=== PATIENT | male | born 1935 | race Two or more races ===

== ENCOUNTER → 2016-11-12 | Outpatient (CLI) | payer MEDICARE, BC ==
[2016-11-12 18:16] LABS: ANION GAP 7 MEQ/L (8-16); BLOOD UREA NITROGEN 20 MG/DL (7-18); CALCIUM LEVEL 9.5 MG/DL (8.8-10.2); CARBON DIOXIDE LEVEL 29 MEQ/L (21-32); CHLORIDE LEVEL 103 MEQ/L (98-107); CREATININE FOR GFR 1.22 MG/DL (0.70-1.30); GLOMERULAR FILTRATION RATE > 60.0 (>35); GLUCOSE, FASTING 100 MG/DL (83-110); POTASSIUM SERUM 4.4 MEQ/L (3.5-5.1); SODIUM LEVEL 139 MEQ/L (136-145)
[2016-11-12 18:29] LABS: MEAN CORPUSCULAR HEMOGLOBIN 30.4 pg (27.0-33.0); MEAN CORPUSCULAR HGB CONC 34.9 g/dl (32.0-36.5); MEAN CORPUSCULAR VOLUME 86.9 fl (80.0-96.0); RED CELL DISTRIBUTION WIDTH 13.6 % (11.5-14.5); WHITE BLOOD COUNT 4.7 K/mm3 (4.0-10.0)
[2016-11-16 14:14] LABS: PSA TOTAL 13.4 ng/mL (0.0-4.0)
== END ==
LOC: M SMT 11:20
PROVIDERS: ATTEND Nurse Practitioner Family
DX: C61 Malignant neoplasm of prostate (principal)
CPT/HCPCS: 36415; 80048; 84154; 85027; G0463

== ENCOUNTER → 2016-11-26 | Outpatient (CLI) | payer MEDICARE, BC ==
[~2016-11-26] MED LIST: ISOVUE-370 76% 100ML VIAL (Q9967) As Ordered ONE
--- NOTE | 2016-11-26 10:41 | REP ---
Clinical: Prostate cancer. Technique: Axial contrast enhanced images from the lung bases to the pubic symphysis using 100 ml Isovue 370 intravenous contrast material with precontrast and delayed images of the abdomen as well as coronal and sagittal re-formations. Findings: Lung bases demonstrate partially calcified pleural plaques, scattered calcified and noncalcified nodules up to 4 mm, and chronic appearing fibroatelectatic changes with mild bronchiectasis. Fatty infiltration of the liver without focal hepatic lesion. Spleen, pancreas, bilateral adrenal glands and kidneys are normal. Incidental 1 cm right adrenal adenoma identified. The patient is status post cholecystectomy. The enteric system is without obstruction or acute inflammatory process. Normal terminal ileum and appendix identified in the right lower quadrant. Colonic and sigmoid diverticulosis noted without acute diverticulitis. Pelvis demonstrates enlarged heterogeneous prostate gland measuring greater than 6.8 cm maximal diameter and having mass effect on otherwise normal appearing bladder. No significant periprostatic stranding or significant adenopathy appreciated. No pelvic fluid or ascites. No free air. No significant retroperitoneal or intra-abdominal adenopathy. No mass lesion. Vasculature demonstrates atherosclerotic changes without aneurysm or dissection. Evaluation of the visualized musculoskeletal structures demonstrate few small sclerotic foci and L3, L4, and right sacrum which may reflect small prostatic metastases. Degenerative changes of the lumbosacral spine are also identified including chronic spondylolysis and associated hypertrophic facet changes. Impression: 1. Cannot exclude few scattered small prostate metastatic foci within the lumbar and sacral vertebra. 2. Enlarged heterogeneous prostate gland consistent with given history of carcinoma. 3. Fatty infiltration to the liver without focal hepatic lesion. 4. Diverticulosis without acute diverticulitis. 5. Small benign right adrenal adenoma. 6. 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 Signed by Alverto Patel MD 11/26/2016 10:33 A
--- NOTE | 2016-11-26 13:15 | REP ---
WHOLE BODY RADIONUCLIDE BONE SCAN: HISTORY: Carcinoma of the prostate. The patient gives a history of a recent bone infection of the left middle toe of the left foot. TECHNIQUE: 22.0 mCi technetium 99m MDP is injected, and standard whole body bone scan imaging was acquired. SCINTIGRAPHIC FINDINGS: There is a normal distribution of skeletal tracer with uptake in bilateral kidneys and in the urinary bladder. There is no evidence to suggest skeletal metastatic disease. There is an arthritic pattern of increased uptake involving the acromioclavicular joints bilaterally as well as the sternoclavicular joints. Arthritic uptake is seen in the left wrist and in both mid foot articulations. There is increased uptake in the 1st tarsometatarsal joint of the right foot and in one of the middle toes on the left. There is also arthritic uptake in the medial aspect of each knee. IMPRESSION: Arthritic pattern of increased uptake. No evidence of skeletal metastatic disease. Signed by Harsh Bennett MD 11/26/2016 04:38 P
== END ==
LOC: M RAD 08:35
PROVIDERS: ATTEND Nurse Practitioner Family
DX: C61 Malignant neoplasm of prostate (principal); M19.032 Primary osteoarthritis, left wrist; M19.071 Primary osteoarthritis, right ankle and foot; M19.072 Primary osteoarthritis, left ankle and foot; M17.0 Bilateral primary osteoarthritis of knee
CPT/HCPCS: 74178; 78306; A9503; Q9967

== ENCOUNTER → 2016-12-10 | Outpatient (CLI) | payer MEDICARE, BC ==
--- NOTE | 2016-12-10 10:58 | REP ---
Prostate sonography: History: Elevated PSA Sonographic findings: Trans rectal prostate sonography demonstrates unremarkable seminal vesicles. Prostate gland is heterogeneously enlarged with calcifications and cystic changes noted. Glandular dimensions are measured at 6.5 x 6.5 x 6.6 cm with a calculated glandular volume of 145 ml. There are three nodules in the left side of the prostate measuring 1.5, 0.5, and 0.7 cm in greatest diameter respectively. Transrectal sonographic guidance provided to who performed trans rectal ultrasound guided needle biopsy procedure . Signed by Harsh Bennett MD 12/10/2016 10:49 A
== END | disposition home or self-care (01) ==
LOC: M SMT PRO 08:51
PROVIDERS: ATTEND Urology
DX: C61 Malignant neoplasm of prostate (principal); N42.89 Other specified disorders of prostate; N41.8 Other inflammatory diseases of prostate; I10 Essential (primary) hypertension; E78.00 Pure hypercholesterolemia, unspecified; Z79.899 Other long term (current) drug therapy
CPT/HCPCS: 55700; 76872; 76942; G0416

== ENCOUNTER → 2018-12-11 | Outpatient (CLI) | payer MEDICARE, BC ==
--- NOTE | 2018-12-12 07:51 | REP ---
REASON: Chronic cough. COMPARISON: None. There is bilateral calcified pleural plaquing left greater than right. The heart is not enlarged. The pleural angles are sharp. The osseous structures are within normal limits for the patient's age. IMPRESSION: Evidence of calcified pleural plaquing but no priors for comparison. CT of the chest is recommended. Electronically Signed by Manuelito Gill DO 12/12/2018 10:02 A
== END ==
LOC: M RAD 16:12
PROVIDERS: ATTEND Physician Assistant Medical
DX: R91.8 Other nonspecific abnormal finding of lung field (principal); R05 Cough